=== PATIENT | male | born 1985 | race Caucasian/White ===

== ENCOUNTER 2017-07-01 19:04 | Emergency (ER) | payer OTHER ==
[~2017-07-01] VITALS: Ht 177.8 cm; Wt 147.4 kg
--- NOTE | 2017-07-01 19:32 | ED.ADGEN ---
Past History Past Medical History: Hypertension, Migraines, Sinusitis Past Surgical History: No Surgical History Alcohol Use: None Drug Use: None Adult General Chief Complaint Chief Complaint ".. I got a fever.. and now a head ache after mowing my yard..." HPI HPI Patient is a 31 year old male who presents with above hx and complaints of fever , headache, congestion all week off and on. Headache worse after mowing yard. Not eating or drinking in attempt to lose wt. Pt. has hx of migraine headaches. Pt. reports no urine out put this entire afternoon. Patient has been dizzy intermittently this afternoon. No recent travel. No specific ill contacts. No history of trauma. Patient reports headache is some similar to prior migraine headaches. Patient normally follows with Dr. Fishman. Review of Systems Review of Systems Constitutional: Denies fever or chills [] Eyes: Denies change in visual acuity, redness, or eye pain [] HENT: Complains of nasal congestion . Respiratory: Denies cough or shortness of breath [] Cardiovascular: No additional information not addressed in HPI [] GI: Denies abdominal pain, nausea, vomiting, bloody stools or diarrhea [] : Denies dysuria or hematuria [] Musculoskeletal: Denies back pain or joint pain [] Integument: Denies rash or skin lesions [] Neurologic: Complaints of headache. Denies, focal weakness or sensory changes [ ] Endocrine: Denies polyuria or polydipsia [] All other systems were reviewed and found to be within normal limits, except as documented in this note. Family History Family History Noncontributory Current Medications Current Medications Current Medications Medications (Trade) Dose Ordered Sig/Gini Start Time Stop Time Status Last Admin Dose Admin Ceftriaxone Sodium (Rocephin Im) 1 gm 1X ONCE 07/01/17 21:30 07/01/17 21:31 DC 07/01/17 21:06 1 GM Morphine Sulfate (Morphine 10mg Syringe) 10 mg 1X ONCE 07/01/17 21:30 07/01/17 21:31 DC 07/01/17 21:06 10 MG Ondansetron HCl (Zofran) 8 mg 1X ONCE 07/01/17 20:15 07/01/17 20:16 DC 07/01/17 20:12 8 MG See nursing for home medications Allergies Allergies Allergies Coded Allergies Type Severity Reaction Last Updated Verified sulfamethoxazole Allergy Severe 07/01/17 Yes trimethoprim Allergy Severe 07/01/17 Yes Physical Exam Physical Exam Constitutional: Moderate distress, non-toxic appearance. [] HENT: Normocephalic, atraumatic, bilateral external ears normal, oropharynx dry , no oral exudates, nose rhinorrhea. Swollen turbinates. Eyes: PERRLA, EOMI, conjunctiva normal, no discharge. [] Neck: Normal range of motion, no tenderness, supple, no stridor. [] Cardiovascular: Tachycardia Heart rate regular rhythm, no murmur [] Lungs & Thorax: Bilateral breath sounds equal at apexes on auscultation [] Abdomen: Bowel sounds normal, soft, no tenderness, no masses, no pulsatile masses. Obese Skin: Warm, dry, no erythema, no rash. [] Back: No tenderness, no CVA tenderness. [] Extremities: No tenderness, no cyanosis, no clubbing, ROM intact, no edema. [] Neurologic: Alert and oriented X 3, normal motor function, normal sensory function, no focal deficits noted. []DTRs +2 at patella and brachial. Patient is ambulatory without problems. Psychologic: Affect anxious, judgement normal, mood normal. [] Current Patient Data Vital Signs Vital Signs Date Time Temp Pulse Resp B/P (MAP) Pulse Ox O2 Delivery O2 Flow Rate FiO2 07/01/17 22:24 94 18 140/86 (104) 96 Room Air 07/01/17 19:19 98.4 Lab Results Laboratory Tests Test 07/01/17 19:25 07/01/17 20:39 07/01/17 21:00 White Blood Count 4.5 x10^3/uL (4.0-11.0) Red Blood Count 5.43 x10^6/uL (4.30-5.70) Hemoglobin 16.3 g/dL (13.0-17.5) Hematocrit 47.4 % (39.0-53.0) Mean Corpuscular Volume 87 fL (79-100) Mean Corpuscular Hemoglobin 30 pg (25-35) Mean Corpuscular Hemoglobin Concent 34 g/dL (31-37) Red Cell Distribution Width 13.8 % (11.5-14.5) Platelet Count 156 x10^3/uL (140-400) Neutrophils (%) (Auto) 62 % (31-73) Lymphocytes (%) (Auto) 17 % (24-48) L Monocytes (%) (Auto) 13 % (0-9) H Eosinophils (%) (Auto) 6 % (0-3) H Basophils (%) (Auto) 1 % (0-3) Neutrophils # (Auto) 2.8 x10^3uL (1.8-7.7) Lymphocytes # (Auto) 0.8 x10^3/uL (1.0-4.8) L Monocytes # (Auto) 0.6 x10^3/uL (0.0-1.1) Eosinophils # (Auto) 0.3 x10^3/uL (0.0-0.7) Basophils # (Auto) 0.0 x10^3/uL (0.0-0.2) Erythrocyte Sedimentation Rate 19 (0-15) H Prothrombin Time 10.6 SEC (9.4-11.4) Prothrombin Time INR 1.0 (0.9-1.1) PTT 28 SEC (23-33) Sodium Level 138 mmol/L (136-145) Potassium Level 3.9 mmol/L (3.5-5.1) Chloride Level 102 mmol/L (98-107) Carbon Dioxide Level 27 mmol/L (21-32) Anion Gap 9 (6-14) Blood Urea Nitrogen 10 mg/dL (8-26) Creatinine 1.1 mg/dL (0.7-1.3) Estimated GFR (Cockcroft-Gault) 77.1 Glucose Level 112 mg/dL (70-99) H Calcium Level 8.8 mg/dL (8.5-10.1) Magnesium Level 2.2 mg/dL (1.8-2.4) Creatine Kinase 68 U/L (39-308) Creatine Kinase MB (Mass) < 0.5 ng/mL (0.0-3.6) Creatine Kinase MB Relative Index 0.7 % (0-4) Troponin I Quantitative < 0.017 ng/mL (0-0.055) TP-Wcu-U-Type Natriuretic Peptide 79 pg/mL (0-124) Urine Collection Type Unknown Urine Color Yellow Urine Clarity Clear Urine pH 7.0 Urine Specific [place] 1.020 Urine Protein Trace (NEG-TRACE) Urine Glucose (UA) Neg mg/dL (NEG) Urine Ketones (Stick) Trace mg/dL (NEG) Urine Blood Trace (NEG) Urine Nitrite Neg (NEG) Urine Bilirubin Neg (NEG) Urine Urobilinogen Dipstick 1 mg/dL (0.2 mg/dL) Urine Leukocyte Esterase Neg (NEG) Urine RBC Rare /HPF (0-2) Urine WBC 1-4 /HPF (0-4) Urine Squamous Epithelial Cells Occ /LPF Urine Bacteria 0 /HPF (0-FEW) Urine Mucus Mod /LPF Urine Opiates Screen Neg (NEG) Urine Methadone Screen Neg (NEG) Urine Barbiturates Neg (NEG) Urine Phencyclidine Screen Neg (NEG) Urine Amphetamine/Methamphetamine Neg (NEG) Urine Benzodiazepines Screen Neg (NEG) Urine Cocaine Screen Neg (NEG) Urine Cannabinoids Screen Neg (NEG) Urine Ethyl Alcohol Neg (NEG) EKG EKG My interpretation of EKG shows a sinus tachycardia 105 bpm. No findings of acute STEMI with contralateral changes.[] Radiology/Procedures Radiology/Procedures My interpretation of chest x-ray shows no acute cardiopulmonary findings. My interpretation of CT of head shows no obvious shift, mass, edema, bleed, or fracture. Does have findings consistent with ethmoid sinusitis. Right ear area appears to be more congested. See formal report when available[] Course & Med Decision Making Course & Med Decision Making Pertinent Labs and Imaging studies reviewed. (See chart for details). Patient declines spinal tap this time. Patient exhibits UCAR capacity. Patient reports marked relief of symptoms at time of discharge. Patient to take Keflex 500 mg 3 times a day for 10 days. Patient used Flonase nasal spray at night. Patient use normal salines sprays at least 4 times a day and when necessary. Patient to follow-up with primary care. Patient may take Tylenol and ibuprofen for pain. Patient return if any concerns. Encouraged patient to push fluid intake especially when he is attempting to lose weight or working outside in the heat. [] Final Impression Final Impression 1. Fever 2. Headache[]-migraine 3. Sinusitis- ethmoid Problems: Dragon Disclaimer Dragon Disclaimer This electronic medical record was generated, in whole or in part, using a voice recognition dictation system. LISANDRO LOPEZ MD Jul 01, 2017 19:31
[2017-07-01 20:05] LABS: BASO % 1 % (0-3); EOS # 0.3 x10^3/uL (0.0-0.7); EOS % 6 % (0-3); HEMATOCRIT 47.4 % (39.0-53.0); HEMOGLOBIN 16.3 g/dL (13.0-17.5); LYMPH # 0.8 x10^3/uL (1.0-4.8); LYMPH % 17 % (24-48); MEAN CORPUSCULAR HEMOGLOBIN 30 pg (25-35); MEAN CORPUSCULAR HGB CONC 34 g/dL (31-37); MEAN CORPUSCULAR VOLUME 87 fL (79-100); MONO # 0.6 x10^3/uL (0.0-1.1); MONO % 13 % (0-9); NEUT # 2.8 x10^3uL (1.8-7.7); NEUT % 62 % (31-73); PLATELET COUNT 156 x10^3/uL (140-400); RED BLOOD COUNT 5.43 x10^6/uL (4.30-5.70); RED CELL DISTRIBUTION WIDTH 13.8 % (11.5-14.5); WHITE BLOOD COUNT 4.5 x10^3/uL (4.0-11.0)
--- NOTE | 2017-07-01 20:07 | EKG ---
[address] [address] Test Date: 2017-07-01 Test Time: 19:55:31 Pat Name: SEVEN PEDRAZA Department: Room: Gender: M Cnp: DOREEN : 1985 Requested By: LISANDRO LOPEZ Order Number: [id number] Reading MD: Measurements Intervals [place] Rate: 105 P: 38 NH: 136 QRS: 19 QRSD: 92 T: 17 QT: 314 QTc: 419 Interpretive Statements SINUS TACHYCARDIA OTHERWISE NORMAL ECG RI6.01 No previous ECG available for comparison
[2017-07-01] MEDS ORDERED: ONDANSETRON PF 4 MG/2 ML VIAL. IV ONE (20:15)
[2017-07-01 20:20] LABS: ANION GAP 9 (6-14); BLOOD UREA NITROGEN 10 mg/dL (8-26); CALCIUM 8.8 mg/dL (8.5-10.1); CARBON DIOXIDE 27 mmol/L (21-32); CHLORIDE 102 mmol/L (98-107); CREATININE 1.1 mg/dL (0.7-1.3); GFR 77.1; GLUCOSE 112 mg/dL (70-99); MAGNESIUM 2.2 mg/dL (1.8-2.4); POTASSIUM 3.9 mmol/L (3.5-5.1); SODIUM 138 mmol/L (136-145)
--- NOTE | 2017-07-01 20:45 | RAD ---
PQRS Compliance Statement: One or more of the following individualized dose reduction techniques were utilized for this examination: 1. Automated exposure control 2. Adjustment of the mA and/or kV according to patient size 3. Use of iterative reconstruction technique CT HEAD WITHOUT CONTRAST History: severe headache x 1 week, nausea Comparison: None. Procedure: Axial images are obtained of the head from the skull base through the vertex without IV contrast. Findings: The ventricles and sulci are normal for the patient's age. No mass-effect, midline shift, hemorrhage, extra-axial fluid collection, or obvious acute infarction is identified. Basilar cisterns are patent. Bone windows demonstrate no acute calvarial abnormality. Mucosal thickening bilateral ethmoid sinuses, worse on the right. The other visualized paranasal sinuses are clear. Mastoid air cells are well aerated. IMPRESSION: No acute intracranial abnormality. Electronically signed by: Darryl Bahena MD (07/01/2017 8:41 PM) [facility]
[2017-07-01] MEDS ORDERED: FLUT9.9S NS (21:04)
[2017-07-01] MEDS ORDERED: CEPH-264 PO (21:04)
[2017-07-01 21:06] LABS: SEDIMENTATION RATE 19 (0-15)
[2017-07-01] MEDS ORDERED: MORPHINE SULFATE 10 MG/ML SYRINGE. SQ ONE (21:30)
[2017-07-01] MEDS ORDERED: cefTRIAXone IM 1 GM VIAL IM ONE (21:30)
[2017-07-01 22:05] LABS: BACTERIA,URINE 0 /HPF (0-FEW); BILIRUBIN,URINE NEG (NEG); CLARITY,URINE CLEAR; GLUCOSE,URINE NEG (NEG); NITRITE,URINE NEG (NEG); RBC,URINE RARE /HPF (0-2); SQUAMOUS EPITHELIAL CELL,UR OCC /LPF; UROBILINOGEN,URINE 1 mg/dL (0.2 mg/dL)
[2017-07-01 22:06] LABS: COLOR,URINE YELLOW
[2017-07-01 22:24] VITALS: BP 140/86
[2017-07-01 22:28] LABS: BARBITURATES NEG (NEG); BENZODIAZEPINES NEG (NEG); CANNABINOIDS NEG (NEG); COCAINE NEG (NEG); METHADONE NEG (NEG); OPIATES NEG (NEG); PHENCYCLIDINE NEG (NEG)
[2017-07-01 22:29] LABS: AMPHETAMINE/METHAMPHETAMINE NEG (NEG)
--- NOTE | 2017-07-02 07:48 | RAD ---
2 views of the Chest 07/01/2017 9:44 PM Indication: nausea, pain Comparison: None Findings: There is no focal consolidation or infiltrate identified. There is no effusion or pneumothorax. The cardiomediastinal silhouette and pulmonary vasculature are within normal limits. No osseous abnormality is identified. Impression: No evidence of acute cardiopulmonary process.
--- NOTE | 2017-07-02 08:14 | RAD ---
Abdomen, 2 views, 07/01/2017: History: Chest and abdominal pain The abdominal gas pattern is unremarkable. No free air is seen in the abdomen. There is no evidence of organomegaly. A faint pelvic radiopacity all and the left is probably a phlebolith. IMPRESSION: No acute abdominal abnormality is detected.
== END 2017-07-01 22:25 | disposition home or self-care (01) ==
LOC: ER 19:04
DX: J32.2 Chronic ethmoidal sinusitis (principal); G43.909 Migraine, unspecified, not intractable, without status migrainosus; I10 Essential (primary) hypertension; Z88.2 Allergy status to sulfonamides; Z88.1 Allergy status to other antibiotic agents
CPT/HCPCS: 36415; 70450; 71046; 74022; 80048; 80307; 81001; 82553; 83735; 83880; 84484; 85025; 85610; 85651; 85730; 93005; 96372; 96374; 99285; J0696; J2270; J2405; G0479

== ENCOUNTER 2019-12-06 12:37 | Emergency (ER) | payer MEDICAID, OTHER ==
[~2019-12-06] VITALS: Ht 185.4 cm; Wt 186.4 kg
[~2019-12-06 12:37] MED LIST: CEPH-264 PO; FLUT9.9S NS
[2019-12-06] MEDS ORDERED: ASPIRIN CHEWABLE 81 MG TABLET. PO ONE (12:45)
--- NOTE | 2019-12-06 12:54 | EKG ---
[address] [address] Test Date: 2019-12-06 Test Time: 12:41:41 Pat Name: SEVEN PEDRAZA Department: Room: Gender: M Vp Organizational Development: : 1985 Requested By: SANTO BERNARDO Order Number: [id number] Reading MD: Roberto Major MD Measurements Intervals [place] Rate: 86 P: 39 CT: 152 QRS: 17 QRSD: 90 T: 26 QT: 348 QTc: 419 Interpretive Statements SINUS RHYTHM Electronically Signed On 12-08-2019 13:02:08 CDT by Roberto Major MD
[2019-12-06 13:00] LABS: BASO # 0.1 x10^3/uL (0.0-0.2); BASO % 1 % (0-3); EOS # 0.2 x10^3/uL (0.0-0.7); EOS % 4 % (0-3); HEMATOCRIT 48.7 % (39.0-53.0); LYMPH # 1.4 x10^3/uL (1.0-4.8); LYMPH % 21 % (24-48); MEAN CORPUSCULAR HEMOGLOBIN 30 pg (25-35); MEAN CORPUSCULAR HGB CONC 33 g/dL (31-37); MEAN CORPUSCULAR VOLUME 91 fL (79-100); MONO # 0.7 x10^3/uL (0.0-1.1); MONO % 11 % (0-9); NEUT # 4.1 x10^3uL (1.8-7.7); NEUT % 63 % (31-73); PLATELET COUNT 230 x10^3/uL (140-400); RED BLOOD COUNT 5.37 x10^6/uL (4.30-5.70); RED CELL DISTRIBUTION WIDTH 14.1 % (11.5-14.5); WHITE BLOOD COUNT 6.6 x10^3/uL (4.0-11.0)
[2019-12-06 13:07] LABS: CALCIUM 9.3 mg/dL (8.5-10.1); CREATININE 1.1 mg/dL (0.7-1.3); GFR 75.7; POTASSIUM 4.1 mmol/L (3.5-5.1)
[2019-12-06 13:40] VITALS: BP 137/67
--- NOTE | 2019-12-06 13:44 | PHYS DOC ---
Past History Past Medical History: Anxiety, GERD, Hypertension, Migraines, Pneumonia, Sinusitis Past Surgical History: No Surgical History Alcohol Use: None Drug Use: None Adult General Chief Complaint Chief Complaint: CHEST PAIN HPI HPI Patient is a 34-year-old male with a history of hypothyroidism who presents to the emergency room complaining of intermittent palpitations. This is been ongoing for the last couple of months and just started happening significantly this morning. It is now mostly resolved. He has seen his primary care doctor for it but they believe that it is related to his reflux. He has been started on medications for his reflux however this has not helped. He recently had an increase in his medication. Review of Systems Review of Systems General: Denies fever, chills, sweats, fatigue Eyes: Denies drainage, blurred vision, eye redness HENT: Denies rhinorrhea, sore throat, earache Respiratory: Denies cough, shortness of breath, wheezing Cardiac: Denies edema, reports palpitations GI: Denies abdominal pain, Nausea, vomiting MSK: Denies back pain, neck pain Skin: Denies rash, jaundice Neuro: Denies headache, dizziness Psychiatric: Denies SI/HI Current Medications Current Medications Current Medications Medications (Trade) Dose Ordered Sig/Gini Start Time Stop Time Status Last Admin Dose Admin Aspirin (Aspirin Chewable) 324 mg 1X ONCE 12/06/19 12:45 12/06/19 12:52 DC 12/06/19 12:52 324 MG Allergies Allergies Allergies Coded Allergies Type Severity Reaction Last Updated Verified sulfamethoxazole Allergy Severe 07/01/17 Yes trimethoprim Allergy Severe 07/01/17 Yes Physical Exam Physical Exam General: Awake, alert, NAD. Well Nourished, well hydrated. Cooperative HEENT: Atraumatic, EOMI, PERRL, airway patent, moist oral mucosa Neck: Supple, trachea midline Respiratory: CTA bilaterally, normal effort, no wheezing/crackles CV: RRR, no murmur, cap refill <2 GI: Soft, nondistended, nontender, no masses MSK: No obvious deformities Skin: Warm, dry, intact Neuro: A&O x3, speech NL, sensory and motor grossly intact, no focal deficits Psych: Normal affect, normal mood, not suicidal or homicidal Current Patient Data Vital Signs Vital Signs Date Time Temp Pulse Resp B/P (MAP) Pulse Ox O2 Delivery O2 Flow Rate FiO2 12/06/19 12:37 97.7 91 26 138/83 (101) 97 Room Air Lab Results Laboratory Tests Test 12/06/19 12:40 White Blood Count 6.6 x10^3/uL (4.0-11.0) Red Blood Count 5.37 x10^6/uL (4.30-5.70) Hemoglobin 16.0 g/dL (13.0-17.5) Hematocrit 48.7 % (39.0-53.0) Mean Corpuscular Volume 91 fL (79-100) Mean Corpuscular Hemoglobin 30 pg (25-35) Mean Corpuscular Hemoglobin Concent 33 g/dL (31-37) Red Cell Distribution Width 14.1 % (11.5-14.5) Platelet Count 230 x10^3/uL (140-400) Neutrophils (%) (Auto) 63 % (31-73) Lymphocytes (%) (Auto) 21 % (24-48) L Monocytes (%) (Auto) 11 % (0-9) H Eosinophils (%) (Auto) 4 % (0-3) H Basophils (%) (Auto) 1 % (0-3) Neutrophils # (Auto) 4.1 x10^3uL (1.8-7.7) Lymphocytes # (Auto) 1.4 x10^3/uL (1.0-4.8) Monocytes # (Auto) 0.7 x10^3/uL (0.0-1.1) Eosinophils # (Auto) 0.2 x10^3/uL (0.0-0.7) Basophils # (Auto) 0.1 x10^3/uL (0.0-0.2) Sodium Level 138 mmol/L (136-145) Potassium Level 4.1 mmol/L (3.5-5.1) Chloride Level 101 mmol/L (98-107) Carbon Dioxide Level 25 mmol/L (21-32) Anion Gap 12 (6-14) Blood Urea Nitrogen 11 mg/dL (8-26) Creatinine 1.1 mg/dL (0.7-1.3) Estimated GFR (Cockcroft-Gault) 75.7 Glucose Level 84 mg/dL (70-99) Calcium Level 9.3 mg/dL (8.5-10.1) Troponin I Quantitative < 0.017 ng/mL (0-0.055) PB-Grv-N-Type Natriuretic Peptide 26 pg/mL (0-124) EKG EKG [] Radiology/Procedures Radiology/Procedures [] Course & Med Decision Making Course & Med Decision Making Pertinent Labs and Imaging studies reviewed. (See chart for details) patient is a 34-year-old male presents to the emergency room complaining of intermittent palpitations. While in the emergency room he did have a couple of episodes and is having some PVCs. Electrolytes are normal at this time. I will refer him to cardiology for Holter monitor. He is not have any true chest pain. Patient's test results and vitals while in the ED were fully reviewed and discussed with the patient. Patient is stable and at this time does not need admission to the hospital. We have discussed strict return precautions and the importance of following up with their Primary Care Physician. Patient stated understanding and was given an opportunity to ask any questions. Patient is in agreement with plan. Dragon Disclaimer Dragon Disclaimer This electronic medical record was generated, in whole or in part, using a voice recognition dictation system. Departure Departure: Disposition: 01 HOME/RESIDENCE PRIOR TO ADM Condition: STABLE Referrals: LIZ METZ MD (PCP) SANTO BERNARDO MD Dec 06, 2019 13:44
--- NOTE | 2019-12-06 13:49 | RAD ---
Exam performed: 2 views of the chest. Indication: Reason: chest pain / Spl. Instructions: / History: Date of Service: 12/06/2019 12:43 PM . Comparison : 2 views chest from 07/01/2017 Findings: PA and lateral radiographs of the chest reveal a normal cardiomediastinal contour. The lungs are clear. No pleural fluid is seen. The visualized osseous structures are unremarkable. Impression: No acute cardiopulmonary process seen. Electronically signed by: Miguelina Qureshi MD (12/06/2019 1:46 PM) [facility]
== END 2019-12-06 14:40 | disposition home or self-care (01) ==
LOC: ER 12:37
DX: R00.2 Palpitations (principal); K21.9 Gastro-esophageal reflux disease without esophagitis; I10 Essential (primary) hypertension; G43.909 Migraine, unspecified, not intractable, without status migrainosus; F41.9 Anxiety disorder, unspecified; E03.9 Hypothyroidism, unspecified; Z88.1 Allergy status to other antibiotic agents; Z88.2 Allergy status to sulfonamides
CPT/HCPCS: 36415; 71046; 80048; 83880; 84484; 85025; 93005; 99285

== ENCOUNTER → 2020-06-02 | Outpatient (CLI) | payer MEDICAID ==
[~2020-06-02] MED LIST changes: +ALBU2.5V8 INH; +ALPR0.5T PO; +ASPI-630 PO; +LEVO200T5 PO; +METO-239 PO; +OMEP40CA45 PO
[2020-06-02] MEDS: IOHEXOL 300 MG/ML 75 ML VIAL. IV ONE (15:11)
--- NOTE | 2020-06-02 16:34 | RAD ---
CT chest abdomen with contrast dated 06/02/2020. No comparison available. CLINICAL INDICATION: Nausea diarrhea and constipation. TECHNIQUE: Contiguous axial imaging of the chest abdomen performed following the intravenous administration of 7 4 cc Isovue-370. One or more of the following individualized dose reduction techniques were utilized for this examinat ion: 1. Automated exposure control 2. Adjustment of the mA and/or kV according to patient size 3. Use of iterative reconstruction technique FINDINGS: Heart size is within normal limits. No pericardial effusion. No mediastinal, hilar or axillary lympha denopathy. Thyroid gland unremarkable. Central airways are patent. Lungs are clear. No consolidation or pleural effusion. No pneumothorax. Central airways are patent. Lungs are clear. No consolidation or pleural effusion. No pneumothorax. Liver is homogeneous. No apparent mass. Gallbladder surgically absent. Spleen is normal in size. Panc reas, adrenal glands and kidneys are unremarkable. No hydronephrosis. Unopacified GI tract normal in caliber and contour. No focal bowel wall thickening. No inflammatory s tranding in the mesentery. No ascites or lymphadenopathy. Appendix normal in caliber. Bone windows show no acute finding. IMPRESSION: 1. No acute abnormality of chest abdomen. 2. Mild fatty infiltration of the liver. 3. Status post cholecystectomy. Electronically signed by: Virgil Juarez MD (06/02/2020 4:31 PM) [facility]
== END ==
LOC: CT 15:00
PROVIDERS: ATTEND Family Medicine
DX: K59.00 Constipation, unspecified (principal); K76.0 Fatty (change of) liver, not elsewhere classified; R10.84 Generalized abdominal pain; R19.7 Diarrhea, unspecified; R63.4 Abnormal weight loss; Z90.49 Acquired absence of other specified parts of digestive tract
CPT/HCPCS: 71260; 74160; Q9967

== ENCOUNTER → 2020-06-18 | Outpatient (CLI) | payer MEDICAID ==
--- NOTE | 2020-06-18 16:59 | RAD ---
EXAM: Chest, 2 views. HISTORY: Shortness of breath. Wheezing. COMPARISON: CT dated 06/02/2020. FINDINGS: 2 views of the chest are obtained. There is no infiltrate, pleural effusion or pneumothorax . The heart is normal in size. IMPRESSION: No acute pulmonary finding. Electronically signed by: Gregoria Beach MD (06/18/2020 4:56 PM) [facility]
== END ==
LOC: RAD 16:37
DX: R06.02 Shortness of breath (principal); R06.2 Wheezing; Z87.01 Personal history of pneumonia (recurrent)
CPT/HCPCS: 71046

== ENCOUNTER 2020-07-12 15:59 | Emergency (ER) | payer MEDICAID ==
[~2020-07-12] VITALS: Ht 185.4 cm; Wt 150.0 kg
--- NOTE | 2020-07-12 17:00 | EKG ---
[address] [address] Test Date: 2020-07-12 Test Time: 16:04:48 Pat Name: SEVEN PEDRAZA Department: Room: Gender: M Emergency Manager: : 1985 Requested By: ROBERT JETT Order Number: [id number] Reading MD: Measurements Intervals [place] Rate: 84 P: 36 MA: 144 QRS: 6 QRSD: 92 T: 25 QT: 346 QTc: 412 Interpretive Statements SINUS RHYTHM NORMAL ECG RI6.02 No previous ECG available for comparison
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
[2020-07-12] MEDS ORDERED: IOHEXOL 350 MG/ML 100 ML VIAL. IV ONE (17:45)
[2020-07-12] MEDS ORDERED: IOHEXOL 300 MG/ML 75 ML VIAL. IV ONE (17:45)
--- NOTE | 2020-07-12 17:57 | RAD ---
EXAM: Chest, single view. HISTORY: Chest pain. COMPARISON: None. FINDINGS: A frontal view of the chest obtained. There is no infiltrate, pleural effusion or pneumotho rax. The heart is normal in size. IMPRESSION: No acute pulmonary finding. Electronically signed by: Gregoria Beach MD (07/12/2020 5:54 PM) [facility]
[2020-07-12 18:05] LABS: BASO % 0 % (0-3); EOS # 0.2 x10^3/uL (0.0-0.7); EOS % 4 % (0-3); HEMATOCRIT 51.3 % (39.0-53.0); HEMOGLOBIN 17.5 g/dL (13.0-17.5); LYMPH # 1.1 x10^3/uL (1.0-4.8); LYMPH % 17 % (24-48); MEAN CORPUSCULAR HEMOGLOBIN 31 pg (25-35); MEAN CORPUSCULAR HGB CONC 34 g/dL (31-37); MEAN CORPUSCULAR VOLUME 91 fL (79-100); MONO # 0.6 x10^3/uL (0.0-1.1); MONO % 10 % (0-9); NEUT # 4.6 x10^3uL (1.8-7.7); NEUT % 70 % (31-73); PLATELET COUNT 227 x10^3/uL (140-400); RED BLOOD COUNT 5.63 x10^6/uL (4.30-5.70); RED CELL DISTRIBUTION WIDTH 13.8 % (11.5-14.5); WHITE BLOOD COUNT 6.7 x10^3/uL (4.0-11.0)
[2020-07-12 18:16] LABS: CALCIUM 9.4 mg/dL (8.5-10.1); CREATININE 1.1 mg/dL (0.7-1.3); GFR 75.7; POTASSIUM 4.5 mmol/L (3.5-5.1)
[2020-07-12 18:30] LABS: ALBUMIN 4.3 g/dL (3.4-5.0); ALBUMIN/GLOBULIN RATIO 1.1 (1.0-1.7); TOTAL BILIRUBIN 0.4 mg/dL (0.2-1.0); TOTAL PROTEIN 8.3 g/dL (6.4-8.2)
--- NOTE | 2020-07-12 19:03 | RAD ---
Exam: CTA NECK Date: 07/12/2020 6:10 PM Indication: neck and chest pain s/p heart cath x 1 week ago Comparison: None Technique: CT angiogram of neck was obtained with bolus injection of 100 mL of Omnipaque 350. The images were s ent to workstation and multiplanar reconstructions were obtained. Multiplanar reconstruction images to include MIP and 3-D reconstruction images are submitted. One or more of the following dose reduct ion techniques were utilized: Automated exposure control (AEC), Adjustment of mA and/or kV according to patient size, Use of iterative reconstruction technique such as ASiR, CT scan done according to AL AFL and image gently/image wisely Findings: Right carotid: The right common carotid artery is patent and normal caliber. The carotid bifurcation is normal. No stenosis of the right internal carotid artery per NASCET criteria. The right external c arotid artery is patent. Left carotid: The left common carotid artery is patent and normal caliber. The carotid bifurcation is normal. No stenosis of the left internal carotid artery per NASCET criteria. The left external carot id artery is patent. Right vertebral: The right vertebral artery is patent and diffusely hypoplastic. Left vertebral: The left vertebral artery is patent and normal caliber. The visualized portions of the aortic arch are normal. The origins of the brachiocephalic and subclav elba arteries are normal. No cervical lymphadenopathy. The thyroid gland is normal. The parotid and submandibular glands are no rmal. The visualized aerodigestive tract is unremarkable. The cervical spine is normal. The visualized portions of the lungs are clear. Impression: No stenosis or dissection of the cervical carotid or vertebral arteries. PQRS Compliance Statement - Stenosis calculations for CT, MR and conventional angiography are based u mireya measurement of the distal ICA diameter in accordance with the NASCET methodology. Electronically signed by: Keo Theodore MD (07/12/2020 7:01 PM) [facility]
[2020-07-12 19:24] VITALS: BP 149/93
[2020-07-12] MEDS ORDERED: oxyCODONE/APAP 7.5/325 1 TAB TABLET PO ONE (19:30)
== END 2020-07-12 20:37 | disposition home or self-care (01) ==
LOC: ER 15:59
DX: R07.89 Other chest pain (principal); M54.2 Cervicalgia; K21.9 Gastro-esophageal reflux disease without esophagitis; Z90.49 Acquired absence of other specified parts of digestive tract; Z88.2 Allergy status to sulfonamides
CPT/HCPCS: 36415; 70498; 71045; 80053; 83880; 84484; 85025; 93005; 99285; Q9967

== ENCOUNTER → 2020-08-19 | Outpatient (CLI) | payer OTHER ==
[~2020-08-19] MED LIST changes: -OMEP40CA45 PO; +OMEP40CA7 PO
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
== END ==
LOC: RAD 13:47
PROVIDERS: ATTEND Nurse Practitioner Family
DX: M25.572 Pain in left ankle and joints of left foot (principal); M79.89 Other specified soft tissue disorders
CPT/HCPCS: 73610

== ENCOUNTER → 2020-08-23 | Outpatient (CLI) | payer MEDICAID ==
--- NOTE | 2020-08-23 16:18 | RAD ---
EXAM: Thyroid sonogram. HISTORY: Hypothyroidism. Neck pain. TECHNIQUE: Sonographic imaging of the thyroid was performed. COMPARISON: CT dated 07/12/2020. FINDINGS: The exam is limited due to the depth of the thyroid gland and patient motion. Right the rig ht thyroid lobe measures 3.3 x 1.4 x 1.1 cm. The left thyroid lobe measures 3.4 x 1.8 x 1.1 cm. The t hyroid isthmus measures 5.1 mm. The thyroid parenchyma is diffusely heterogeneous. No discrete nodule is seen. There is a prominent left cervical chain lymph node measuring 2.8 cm in long axis at the si te of reported palpable concern. This maintains a fatty hilum. However, this demonstrates mild cortic al thickening. IMPRESSION: 1. Limited exam due to the depth of the thyroid gland and patient motion. The thyroid parenchyma is d iffusely heterogeneous, without a discrete nodule. This can be seen as a sequela of thyroiditis. 2. Prominent left cervical chain lymph node with thickened cortex at the site of palpable concern. Th is is nonspecific and may be physiologic or reactive in etiology. Continued clinical follow-up of pal pable abnormalities is recommended. Electronically signed by: Gregoria Beach MD (08/23/2020 4:15 PM) [id number]
== END ==
LOC: US 14:57
PROVIDERS: ATTEND Physician Assistant
DX: E06.9 Thyroiditis, unspecified (principal); M54.2 Cervicalgia; E03.9 Hypothyroidism, unspecified
CPT/HCPCS: 76536

== ENCOUNTER → 2020-10-09 | Outpatient (CLI) | payer MEDICAID ==
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
== END ==
LOC: RAD 12:31
PROVIDERS: ATTEND Nurse Practitioner Family
DX: M43.8X2 Other specified deforming dorsopathies, cervical region (principal); M54.5 Low back pain; M54.6 Pain in thoracic spine; M53.3 Sacrococcygeal disorders, not elsewhere classified; Z91.81 History of falling
CPT/HCPCS: 72072; 72100; 72220

== ENCOUNTER 2020-11-16 21:42 | Emergency (ER) | payer MEDICAID ==
[~2020-11-16] VITALS: Ht 185.4 cm; Wt 159.0 kg
--- NOTE | 2020-11-16 22:30 | PHYS DOC ---
Past History Past Medical History: GERD, Hyperthyroid Past Surgical History: Cholecystectomy, Other Additional Past Surgical Histo: CARDIAC CATH Alcohol Use: None Drug Use: None General Adult EDM: Chief Complaint: CHEST PAIN HPI: HPI: 35-year-old male presents with chest pain. The patient has been having inte rmittent chest pain for about a year. He used to have very frequent PVCs that cause dizziness and near syncope. He had his disease gallbladder removed and these events stopped happening. He has been having events like this more recently. He presents tonight because his primary care physician is unable to get a CT ordered for the patient until March. Patient had a cardiac cath in April that was completely clean. Patient has been feeling a mass in his left breast and there is strong family history of male breast cancer. Patient denies fever or chills. Review of Systems: Review of Systems: Constitutional: Denies fever or chills Eyes: Denies change in visual acuity HENT: Denies nasal congestion or sore throat Respiratory: Denies cough or shortness of breath Cardiovascular: Chest pain GI: Denies abdominal pain, nausea, vomiting, bloody stools or diarrhea : Denies dysuria Musculoskeletal: Denies back pain or joint pain Integument: Breast mass left breast Neurologic: Denies headache, focal weakness or sensory changes Endocrine: Denies polyuria or polydipsia Lymphatic: Denies swollen glands Psychiatric: Denies depression or anxiety Allergies: Allergies: Allergies Coded Allergies Type Severity Reaction Last Updated Verified sulfamethoxazole Allergy Severe 07/01/17 Yes trimethoprim Allergy Severe 07/01/17 Yes Physical Exam: PE: Constitutional: Well developed, well nourished, morbidly obese, no acute distress, non-toxic appearance. [] HENT: Normocephalic, atraumatic, bilateral external ears normal, oropharynx moist, no oral exudates, nose normal. [] Eyes: PERRLA, EOMI, conjunctiva normal, no discharge. [] Neck: Normal range of motion, no tenderness, supple, no stridor. [] Cardiovascular: Heart rate regular rhythm, no murmur [] Lungs & Thorax: Bilateral breath sounds clear to auscultation [] Abdomen: Bowel sounds normal, soft, no tenderness, no masses, no pulsatile masses. [] Skin: Subcentimeter palpable mass at the 8 o'clock position of the left breast. [] Back: No tenderness, no CVA tenderness. [] Extremities: No tenderness, no cyanosis, no clubbing, ROM intact, no edema. [] Neurologic: Alert and oriented X 3, normal motor function, normal sensory function, no focal deficits noted. [] Psychologic: Affect normal, judgement normal, mood normal. [] Current Patient Data: Vital Signs: Vital Signs Date Time Temp Pulse Resp B/P (MAP) Pulse Ox O2 Delivery O2 Flow Rate FiO2 11/16/20 21:50 98.4 101 18 164/84 (110) 98 Room Air EKG: EKG: Sinus rhythm, rate 91, leftward axis, no ST elevation or depression. [] Radiology/Procedures: Radiology/Procedures: [] Impressions: Examination: CT chest abdomen pelvis with IV contrast HISTORY: History of chest pain, epigastric pain COMPARISON: None available TECHNIQUE: Axial CT images of the chest abdomen pelvis were performed with IV contrast. Coronal and sagittal reformats are performed Exposure: One or more of the following individualized dose reduction techniques were utilized for this examination: 1. Automated exposure control 2. Adjustment of the mA and/or kV according to patient size 3. Use of iterative reconstruction technique. FINDINGS: The visualized thyroid gland grossly appears unremarkable. Central airways are patent. The caliber of the aorta grossly appears unremarkable. No radiologically significant mediastinal lymphadenopathy. The heart size grossly appears unremarkable. The lungs are clear. No evidence of free air identified in the abdomen. Mild degree attenuation noted in the liver likely steatosis. The spleen, adrenals grossly appears unremarkable. Cholecystectomy changes. The stomach is mildly distended. Minimal distended small bowel loops. The visualized pancreas grossly appears unremarkable. The small bowel is nondilated. Feces and gas noted in the colon. The appendix is normal. Urinary bladder is mildly distended No evidence of hydronephrosis. No evidence of lytic or destructive lesion. IMPRESSION: 1. Minimally distended small bowel loops, nonspecific or mild enteritis. 2. Mild hepatic steatosis. 3. Cholecystectomy changes. Electronically signed by: Fernando Fontaine MD (11/16/2020 11:55 PM) [id number] DICTATED AND SIGNED BY: FERNANDO FONTAINE MD DATE: 11/16/20 2348 CC: RUMA AYALA DO; JOHNNY POLO MD ~MTH0 0 Heart Score: C/O Chest Pain: Yes HEART Score for Chest Pain: HEART Score for Chest Pain Response (Comments) Value History Slighlty/Non-Suspicious 0 ECG Normal 0 Age < 45 0 Risk Factors 1 or 2 Risk Factors 1 Troponin < Normal Limit 0 Total 1 Risk Factors: Risk Factors: DM, Current or recent (<one month) smoker, HTN, HLP, family history of CAD, obesity. Risk Scores: Score 0 - 3: 2.5% MACE over next 6 weeks - Discharge Home Score 4 - 6: 20.3% MACE over next 6 weeks - Admit for Clinical Observation Score 7 - 10: 72.7% MACE over next 6 weeks - Early Invasive Strategies Course & Med Decision Making: Course & Med Decision Making Pertinent Labs and Imaging studies reviewed. (See chart for details) Patient's EKG is unremarkable. His chest x-ray shows bilateral minimal atelectasis or infiltrates. His other lab work and symptoms do not support infiltrates. His labs are unremarkable. His CT scan showed some nonspecific mild dilated loops of small bowel. No obvious chest wall mass on scan. See official read for details. I have encouraged the patient to have a mammogram and/or ultrasound given the breast cancer history in the family. He will continue to follow-up with his doctors as previously planned. He is stable for discharge at this time. [] Dragon Disclaimer: Dragon Disclaimer: This electronic medical record was generated, in whole or in part, using a voice recognition dictation system. Departure Departure: Impression: Primary Impression: Chest wall pain Additional Impression: Palpitations Disposition: HOME / SELF CARE / HOMELESS Condition: STABLE Referrals: JOHNNY POLO MD (PCP) Patient Instructions: Palpitations, [id number] RUMA AYALA DO Nov 16, 2020 22:30
[2020-11-16 22:51] LABS: BASO % 1 % (0-3); EOS # 0.2 x10^3/uL (0.0-0.7); EOS % 3 % (0-3); HEMATOCRIT 51.7 % (39.0-53.0); HEMOGLOBIN 17.4 g/dL (13.0-17.5); LYMPH # 1.4 x10^3/uL (1.0-4.8); LYMPH % 26 % (24-48); MEAN CORPUSCULAR HEMOGLOBIN 31 pg (25-35); MEAN CORPUSCULAR HGB CONC 34 g/dL (31-37); MEAN CORPUSCULAR VOLUME 91 fL (79-100); MONO # 0.7 x10^3/uL (0.0-1.1); MONO % 12 % (0-9); NEUT # 3.3 x10^3uL (1.8-7.7); NEUT % 59 % (31-73); PLATELET COUNT 215 x10^3/uL (140-400); RED BLOOD COUNT 5.67 x10^6/uL (4.30-5.70); WHITE BLOOD COUNT 5.6 x10^3/uL (4.0-11.0)
[2020-11-16 22:52] LABS: CALCIUM 8.7 mg/dL (8.5-10.1); CREATININE 1.1 mg/dL (0.7-1.3); GFR 75.3; POTASSIUM 4.1 mmol/L (3.5-5.1)
[2020-11-16 22:58] LABS: ALBUMIN 4.1 g/dL (3.4-5.0); ALBUMIN/GLOBULIN RATIO 1.1 (1.0-1.7); TOTAL BILIRUBIN 0.5 mg/dL (0.2-1.0); TOTAL PROTEIN 7.7 g/dL (6.4-8.2)
[2020-11-16] MEDS ORDERED: IOHEXOL 300 MG/ML 75 ML VIAL. IV ONE (23:30)
[2020-11-16] MEDS ORDERED: CONTRAST GIVEN. MC PRN (23:30)
--- NOTE | 2020-11-16 23:39 | RAD ---
EXAM: CHEST 1 VIEW History: Chest pain COMPARISON: None available. TECHNIQUE: Single portable radiograph of the chest FINDINGS: The cardiac silhouette is unremarkable. Mild bibasilar lung atelectasis or infiltrates.. T he costophrenic sulci are clear and well demarcated. IMPRESSION: Mild bibasilar lung atelectasis or infiltrates. Electronically signed by: Fernando Fontaine MD (11/16/2020 11:37 PM) [id number]
--- NOTE | 2020-11-16 23:58 | RAD ---
Examination: CT chest abdomen pelvis with IV contrast HISTORY: History of chest pain, epigastric pain COMPARISON: None available TECHNIQUE: Axial CT images of the chest abdomen pelvis were performed with IV contrast. Coronal and s agittal reformats are performed Exposure: One or more of the following individualized dose reduction techniques were utilized for thi s examination: 1. Automated exposure control 2. Adjustment of the mA and/or kV according to patient size 3. Use of iterative reconstruction technique. FINDINGS: The visualized thyroid gland grossly appears unremarkable. Central airways are patent. The caliber of the aorta grossly appears unremarkable. No radiologically significant mediastinal lymphadenopathy. T he heart size grossly appears unremarkable. The lungs are clear. No evidence of free air identified i n the abdomen. Mild degree attenuation noted in the liver likely steatosis. The spleen, adrenals chong sly appears unremarkable. Cholecystectomy changes. The stomach is mildly distended. Minimal distended small bowel loops. The visualized pancreas grossly appears unremarkable. The small bowel is nondilated. Feces and gas noted in the colon. The appendix is normal. Urinary bladder is mildly distended No evidence of hydronephrosis. No evidence of lytic or destructive lesion. IMPRESSION: 1. Minimally distended small bowel loops, nonspecific or mild enteritis. 2. Mild hepatic steatosis. 3. Cholecystectomy changes. Electronically signed by: Fernando Fontaine MD (11/16/2020 11:55 PM) [id number]
[2020-11-17 00:16] VITALS: BP 133/78
--- NOTE | 2020-11-17 07:22 | EKG ---
[address] [address] Test Date: 2020-11-16 Test Time: 22:15:51 Pat Name: SEVEN PEDRAZA Department: Room: Gender: M Tube Operator: ALAN : 1985 Requested By: RUMA AYALA Order Number: [id number] Reading MD: Measurements Intervals [place] Rate: 91 P: 39 NV: 154 QRS: -6 QRSD: 94 T: 26 QT: 340 QTc: 420 Interpretive Statements SINUS RHYTHM LEFTWARD AXIS NO SPECIFIC ECG ABNORMALITIES RI6.02 No previous ECG available for comparison
== END 2020-11-17 00:26 | disposition home or self-care (01) ==
LOC: ER 21:42
DX: R07.89 Other chest pain (principal); R00.2 Palpitations; R42 Dizziness and giddiness; R55 Syncope and collapse; N63.0 Unspecified lump in unspecified breast; K21.9 Gastro-esophageal reflux disease without esophagitis; E03.9 Hypothyroidism, unspecified; Z88.2 Allergy status to sulfonamides; Z88.1 Allergy status to other antibiotic agents
CPT/HCPCS: 36415; 71045; 71260; 74177; 80053; 84484; 85025; 93005; 99285; Q9967

== ENCOUNTER 2020-12-25 19:20 | Emergency (ER) | payer MEDICAID ==
[~2020-12-25] VITALS: Ht 182.9 cm; Wt 157.3 kg
[2020-12-25 19:26] VITALS: BP 164/89
[2020-12-25] MEDS ORDERED: ASPIRIN CHEWABLE 81 MG TABLET. PO ONE (20:00)
[2020-12-25 20:30] LABS: BASO % 1 % (0-3); EOS # 0.2 x10^3/uL (0.0-0.7); EOS % 3 % (0-3); HEMATOCRIT 52.7 % (39.0-53.0); HEMOGLOBIN 17.6 g/dL (13.0-17.5); LYMPH # 1.3 x10^3/uL (1.0-4.8); LYMPH % 21 % (24-48); MEAN CORPUSCULAR HEMOGLOBIN 31 pg (25-35); MEAN CORPUSCULAR HGB CONC 33 g/dL (31-37); MEAN CORPUSCULAR VOLUME 92 fL (79-100); MONO # 0.6 x10^3/uL (0.0-1.1); MONO % 9 % (0-9); NEUT # 4.3 x10^3uL (1.8-7.7); NEUT % 67 % (31-73); PLATELET COUNT 224 x10^3/uL (140-400); RED BLOOD COUNT 5.76 x10^6/uL (4.30-5.70); RED CELL DISTRIBUTION WIDTH 13.9 % (11.5-14.5); WHITE BLOOD COUNT 6.4 x10^3/uL (4.0-11.0)
--- NOTE | 2020-12-25 20:42 | RAD ---
EXAM: AP View of the chest DATE: 12/25/2020 7:44 PM INDICATION: Chest pain COMPARISON: 11/16/2020 07/12/2020 FINDINGS: The heart is not enlarged. Mediastinal and hilar contours are normal. No focal parenchymal airspace opacity. No pleural effusion or pneumothorax. IMPRESSION: 1. No radiographic evidence for acute cardiopulmonary process. Electronically signed by: Logan Romo MD (12/25/2020 8:40 PM) SC[facility]
[2020-12-25 20:55] LABS: ANION GAP 7 (6-14); BLOOD UREA NITROGEN 13 mg/dL (8-26); BUN/CREATININE RATIO 12 (6-20); CALCIUM 9.1 mg/dL (8.5-10.1); CARBON DIOXIDE 28 mmol/L (21-32); CHLORIDE 104 mmol/L (98-107); CREATININE 1.1 mg/dL (0.7-1.3); GFR 75.3; GLUCOSE 89 mg/dL (70-99); POTASSIUM 4.1 mmol/L (3.5-5.1); SODIUM 139 mmol/L (136-145)
[2020-12-25 21:21] LABS: ALBUMIN 4.1 g/dL (3.4-5.0); ALK PHOS 89 U/L (46-116); ALT (SGPT) 26 U/L (16-63); AST (SGOT) 16 U/L (15-37); LIPASE 56 U/L (73-393); TOTAL BILIRUBIN 0.3 mg/dL (0.2-1.0); TOTAL PROTEIN 8.2 g/dL (6.4-8.2)
--- NOTE | 2020-12-25 22:04 | PHYS DOC ---
Past History Past Medical History: GERD, Hyperthyroid (AURORA MYERS APRN) Past Surgical History: Cholecystectomy, Other Additional Past Surgical Histo: CARDIAC CATH (AURORA MYERS APRN) Alcohol Use: None Drug Use: None (AURORA MYERS APRN) Adult General Chief Complaint Chief Complaint: CHEST PAIN HPI HPI Patient is a 35-year-old male presents to the emergency department concerning cardiac dysrhythmias. Patient reports a low heart rate in the forties along with a decreased O2 sat at home which he monitors with his apple watch and a O2 sat machine. Patient reports he is currently being followed closely by Dr. Major medicare specialist, has recently worn a Holter monitor but has not reviewed results with his doweling machine operator yet. Patient also reports being followed with a cardio liquor runner. Patient reports he became concerned when his heart rate became very low with the low O2 sat. Patient states he also has experienced some sternal chest pain with radiation to his left arm and jaw. Patient denies syncopal episodes, dizzy spells, diaphoretic episodes, nausea, vomiting or diarrhea. She denies other physical complaints or physical concerns. (AURORA MYERS APRN) Review of Systems Review of Systems 14 body systems of review of systems have been reviewed. See HPI for pertinent positives and negative responses, otherwise all other systems are negative, nonpertinent or noncontributory. Constitutional: Negative except as outlined in HPI above. Skin: Negative except as outlined in HPI above. Eyes: Negative except as outlined in HPI above. HENT: Negative except as outlined in HPI above. Respiratory: Negative except as outlined in HPI above. Cardiovascular: Negative except as outlined in HPI above. GI: Negative except as outlined in HPI above. : Negative except as outlined in HPI above. Musculoskeletal: Negative except as outlined in HPI above. Integument: Negative except as outlined in HPI above. Neurologic: Negative except as outlined in HPI above. Endocrine: Negative except as outlined in HPI above. Lymphatic: Negative except as outlined in HPI above. Psychiatric: Negative except as outlined in HPI above. (AURORA MYERS APRN) Current Medications Current Medications Current Medications Medications (Trade) Dose Ordered Sig/Gini Start Time Stop Time Status Last Admin Dose Admin Aspirin (Aspirin Chewable) 324 mg 1X ONCE 12/25/20 20:00 12/25/20 20:01 DC 12/25/20 20:40 324 MG (AURORA MYERS APRN) Allergies Allergies Allergies Coded Allergies Type Severity Reaction Last Updated Verified sulfamethoxazole Allergy Severe 12/25/20 Yes trimethoprim Allergy Severe 12/25/20 Yes metoprolol Allergy Unknown hypotension 12/25/20 Yes (AURORA MYERS APRN) Physical Exam Physical Exam Constitutional: Well developed, well nourished, no acute distress, non-toxic appearance. 35-year-old male in no apparent distress. HENT: Normocephalic, atraumatic. Eyes: Conjunctiva normal, no discharge. Neck: Normal range of motion, no stridor. Cardiovascular: No cyanosis appreciated, distal cap refill less than 2 seconds. Heart sounds S1-S2 to auscultation. Lungs & Thorax: Patient is in no respiratory distress, no audible adventitious lung sounds appreciated. No adventitious lung sounds appreciated per auscultation, lung sounds clear all lung alvarado. Abdomen: Nontender, no abnormalities noted. Skin: Warm, dry, no erythema, no rash. Back: No tenderness, no deformities. Extremities: No tenderness, no cyanosis, no clubbing, ROM intact, no edema. Neurologic: Alert and oriented X 3, normal motor function, normal sensory function, no focal deficits noted. Psychologic: Affect normal, judgement normal, mood normal. (AURORA MYERS APRN) Current Patient Data Vital Signs Vital Signs Date Time Temp Pulse Resp B/P (MAP) Pulse Ox O2 Delivery O2 Flow Rate FiO2 12/25/20 19:26 98.5 85 18 164/89 (114) 98 Lab Results Laboratory Tests Test 12/25/20 19:50 White Blood Count 6.4 x10^3/uL (4.0-11.0) Red Blood Count 5.76 x10^6/uL (4.30-5.70) H Hemoglobin 17.6 g/dL (13.0-17.5) H Hematocrit 52.7 % (39.0-53.0) Mean Corpuscular Volume 92 fL (79-100) Mean Corpuscular Hemoglobin 31 pg (25-35) Mean Corpuscular Hemoglobin Concent 33 g/dL (31-37) Red Cell Distribution Width 13.9 % (11.5-14.5) Platelet Count 224 x10^3/uL (140-400) Neutrophils (%) (Auto) 67 % (31-73) Lymphocytes (%) (Auto) 21 % (24-48) L Monocytes (%) (Auto) 9 % (0-9) Eosinophils (%) (Auto) 3 % (0-3) Basophils (%) (Auto) 1 % (0-3) Neutrophils # (Auto) 4.3 x10^3uL (1.8-7.7) Lymphocytes # (Auto) 1.3 x10^3/uL (1.0-4.8) Monocytes # (Auto) 0.6 x10^3/uL (0.0-1.1) Eosinophils # (Auto) 0.2 x10^3/uL (0.0-0.7) Basophils # (Auto) 0.0 x10^3/uL (0.0-0.2) D-Dimer (Margie) < 0.19 mg/L (0.00-0.50) Sodium Level 139 mmol/L (136-145) Potassium Level 4.1 mmol/L (3.5-5.1) Chloride Level 104 mmol/L (98-107) Carbon Dioxide Level 28 mmol/L (21-32) Anion Gap 7 (6-14) Blood Urea Nitrogen 13 mg/dL (8-26) Creatinine 1.1 mg/dL (0.7-1.3) Estimated GFR (Cockcroft-Gault) 75.3 BUN/Creatinine Ratio 12 (6-20) Glucose Level 89 mg/dL (70-99) Calcium Level 9.1 mg/dL (8.5-10.1) Total Bilirubin 0.3 mg/dL (0.2-1.0) Aspartate Amino Transferase (AST) 16 U/L (15-37) Alanine Aminotransferase (ALT) 26 U/L (16-63) Alkaline Phosphatase 89 U/L (46-116) Creatine Kinase 46 U/L (39-308) Creatine Kinase MB (Mass) < 0.5 ng/mL (0.0-3.6) Creatine Kinase MB Relative Index 1.1 % (0-4) Troponin I Quantitative < 0.017 ng/mL (0-0.055) HS-Pnv-H-Type Natriuretic Peptide 22 pg/mL (0-124) Total Protein 8.2 g/dL (6.4-8.2) Albumin 4.1 g/dL (3.4-5.0) Albumin/Globulin Ratio 1.0 (1.0-1.7) Lipase 56 U/L (73-393) L (AURORA MYERS APRN) EKG EKG EKG performed at 1923 by ED nursing staff shows a normal sinus rhythm without ectopy, heart rate 89 bpm, NH interval 0.132, QTc interval 0.415, no acute STEMI, no ACS, no acute ischemia appreciated, EKG interpreted by ED attending physician Dr. Crabtree. (AURORA MYERS APRN) Radiology/Procedures Radiology/Procedures PATIENT: SEVEN PEDRAZA ACCOUNT: [id number] : 1985 LOCATION: ER AGE: 35 SEX: M EXAM STATUS: REG ER ORD. PHYSICIAN: AURORA MYERS APRN REASON: Chest pain PROCEDURE: CHEST AP ONLY EXAM: AP View of the chest DATE: 12/25/2020 7:44 PM INDICATION: Chest pain COMPARISON: 11/16/2020 07/12/2020 FINDINGS: The heart is not enlarged. Mediastinal and hilar contours are normal. No focal parenchymal airspace opacity. No pleural effusion or pneumothorax. IMPRESSION: 1. No radiographic evidence for acute cardiopulmonary process. Electronically signed by: Logan Romo MD (12/25/2020 8:40 PM) [facility] (AURORA MYERS APRN) Heart Score C/O Chest Pain: Yes HEART Score for Chest Pain: HEART Score for Chest Pain Response (Comments) Value History Slighlty/Non-Suspicious 0 ECG Normal 0 Age < 45 0 Risk Factors No Risk Factors 0 Troponin < Normal Limit 0 Total 0 Risk Factors: Risk Factors: DM, Current or recent (<one month) smoker, HTN, HLP, family history of CAD, obesity. Risk Scores: Risk Factors: DM, Current or recent (<one month) smoker, HTN, HLP, family history of CAD, obesity. (AURORA MYERS APRN) Course & Med Decision Making Course & Med Decision Making Pertinent Labs and Imaging studies reviewed. (See chart for details) 35-year-old male, vital signs reviewed, resents emergency functioning cardiac arrhythmias, low O2 sat, and chest pain. Physical examination unremarkable, will order cardiorespiratory work-up related to patient's verbal complaints. Will give 324 baby aspirin. Patient's EKG unremarkable, cardiac enzymes unremarkable, labs unremarkable. Upon reevaluation of the patient, patient reports chest pain has resolved. Patient is concerned that he has seen PVCs and PACs on his vehicle monitor technician while waiting for results. Discussed with patient calling his doweling machine operator Dr. Major tomorrow to review Holter monitor results. Patient gave verbal understanding of and is amenable to ED discharge planning. Return to ER precautions or concerns, as well as strict follow-up with Dr. Major. The patient's HEART score equals 0 Discussed with the patient all findings and diagnostic testing as well as the need to follow-up with their primary care provider for further evaluation and treatment or return to the ED if any new or worsening symptoms. Strict return precautions were also discussed at length, the patient voiced understanding and agreement with the discharge planning. The patient was nontoxic in appearance, in no apparent distress, and hemodynamically stable at the time of disposition. (AURORA MYERS APRN) Dragon Disclaimer Dragon Disclaimer This electronic medical record was generated, in whole or in part, using a voice recognition dictation system. (AURORA MYERS APRN) Departure Departure: Impression: Primary Impression: Cardiac arrhythmia, unspecified Disposition: 01 HOME / SELF CARE / HOMELESS Condition: GOOD Referrals: JOHNNY POLO MD (PCP) Patient Instructions: Cardiac Arrhythmia Additional Instructions: You were seen today in the emergency department for concerning cardiac arrhythmias, decreased oxygen saturation, and chest pains. Your chest pains has resolved spontaneously, your cardiorespiratory work-up is unremarkable for myocardial infarction, heart attack, pneumonia or other cardio respiratory process. During the monitoring it was revealed that occasional PACs and PVCs were noted. You have a history of these and are being closely followed by your doweling machine operator Dr. Major. You had revealed that your Holter monitor study has not been specifically discussed with Dr. Major as of this time, I encourage you to contact him to discuss your results. Please return to the emergency department immediately for worsening symptoms, increased chest pain, shortness of breath, syncopal episodes, or other concerns. Thank you for visiting our Emergency Department. It was a pleasure taking care of you today in the emergency department and we appreciate you trusting us with your care. If any additional problems come up don't hesitate to return to visit us. Please follow up with your primary care provider so they can plan additional care if needed and know about the problem that you had. If symptoms worsen come back to the Emergency Department. Any concerning symptoms that start such as chest pain, shortness of air, weakness or numbness on one side of the body, running high fevers or any other concerning symptoms return to the ER. EMERGENCY DEPARTMENT GENERAL DISCHARGE INSTRUCTIONS Thank you for coming to [facility] (ED) today and trusting us with you care. We trust that you had a positivie experience in our Emergency Department. If you wish to speak to the department management, you may call the director at [phone]. YOUR FOLLOW UP INSTRUCTIONS ARE FOLLOWS: 1. Do you have a private Doctor? If you do not have a private doctor, please ask for a resource list of physicians or clinics that may be able to assist you with follow up care. 2. The Emergency Physician has interpreted your x-rays. The X-Ray specialist will also review them. If there is a change in the findings, you will be notified in 48 hours when at all possible. 3. A lab test or culture has been done, your results will be reviewed and you will be notified if you need a change in treatment. ADDITIONAL INSTRUCTIONS AND INFORMATION: 1. Your care today has been supervised by a physician who is specially trained in emergency care. Many problems require more than one evaluation for a complete diagnosis and treatment. We recommend that you schedule your follow up appointment as recommended to ensure complete treatment of you illness or injury. If you are unable to obtain follow up care and continue to have a problem, or if your condition worsens, we recommend that you return to the ED. 2. We are not able to safely determine your condition over the phone nor are we able to give sound medical advice over the phone. For these safety reasons, if you call for medical advice we will ask you to come to the ED for further evaluation. 3. If you have any questions regarding these discharge instructions please call the ED at [phone]. SAFETY INFORMATION: In the interest of safety, wellness, and injury prevention; we encourage you to wear your sealbelt, if you smoke; quite smoking, and we encourage family to use a protective helmet for bicycling and other sporting events that present an increased risk for head injury. IF YOUR SYMPTOMS WORSEN OR NEW SYMPTOMS DEVELOP, OR YOU HAVE CONCERNS ABOUT YOUR CONDITION; OR IF YOUR CONDITION WORSENS WHILE YOU ARE WAITING FOR YOUR FOLLOW UP APPOINTMENT; EITHER CONTACT YOUR PRIMARY CARE DOCTOR, THE PHYSICIAN WHOSE NAME AND NUMBER YOU WERE GIVEN, OR RETURN TO THE ED IMMEDIATELY. Attending Signature Attending Signature I have participated in the care of this patient and I have reviewed and agree with all pertinent clinical information above including history, exam, and recommendations. (LISANDRO CRABTREE MD) Problem Qualifiers Primary Impression: Cardiac arrhythmia, unspecified Arrhythmia type: unspecified cardiac arrhythmia Qualified Codes: I49.9 - Cardiac arrhythmia, unspecified AURORA MYERS APRN Dec 25, 2020 22:04 LISANDRO CRABTREE MD Dec 26, 2020 03:08
--- NOTE | 2020-12-25 22:56 | EKG ---
[address] [address] Test Date: 2020-12-25 Test Time: 19:23:17 Pat Name: SEVEN PEDRAZA Department: Room: Gender: M Cork Tipper: : 1985 Requested By: AURORA MYERS Order Number: [id number] Reading MD: Roberto Major MD Measurements Intervals [place] Rate: 89 P: 33 NV: 132 QRS: 16 QRSD: 88 T: 28 QT: 340 QTc: 415 Interpretive Statements SINUS RHYTHM Electronically Signed On 12-27-2020 8:52:54 CDT by Roberto Major MD
== END 2020-12-25 22:10 | disposition home or self-care (01) ==
LOC: ER 19:20
DX: I49.9 Cardiac arrhythmia, unspecified (principal); K21.9 Gastro-esophageal reflux disease without esophagitis; Z88.2 Allergy status to sulfonamides; Z90.49 Acquired absence of other specified parts of digestive tract
CPT/HCPCS: 36415; 71045; 80053; 82553; 83690; 83880; 84484; 85025; 85379; 93005; 99285-25

== ENCOUNTER 2021-04-22 21:11 | Emergency (ER) | payer MEDICAID ==
[~2021-04-22] VITALS: Ht 182.9 cm; Wt 160.8 kg
[2021-04-22] MEDS ORDERED: ASPIRIN CHEWABLE 81 MG TABLET. PO ONE (21:30)
[2021-04-22] MEDS ORDERED: IV RINGERS SOLUTION,LACTATED 1,000 ML IV SCH (21:30)
--- NOTE | 2021-04-22 21:40 | PHYS DOC ---
Past History Past Medical History: GERD, Hyperthyroid Past Surgical History: Cholecystectomy, Other Additional Past Surgical Histo: CARDIAC CATH Alcohol Use: None Drug Use: None General Adult HPI: HPI: ".. I having chest discomfort... I just had a stress test yesterday with Dr. Siddiqui,..and echo... said my EF was 55% and .. " Patient is a 35 year old male who presents with above hx and complaints of chest discomfort.. Patient's stress echo was completed yesterday. Patient has had recurrent episodes of chest discomfort. Patient denies any trauma. Patient denies any changes in meds. Patient denies any travel. Patient denies any specific ill contacts. Patient denies any immunosuppression. Patient has had some several weight gain past couple years. Patient reportedly prior cardiac work-ups have been negative. Patient does have some history of GERD. Review of Systems: Review of Systems: Constitutional: Denies fever or chills Eyes: Denies change in visual acuity HENT: Denies nasal congestion or sore throat Respiratory: Denies cough or shortness of breath Cardiovascular: Complains of chest discomfort GI: Denies abdominal pain, nausea, vomiting, bloody stools or diarrhea : Denies dysuria Musculoskeletal: Denies back pain or joint pain Integument: Denies rash Neurologic: Denies headache, focal weakness or sensory changes Endocrine: Denies polyuria or polydipsia Lymphatic: Denies swollen glands Psychiatric: Denies depression or anxiety Family History: Family History: Noncontributory presentation Current Medications: Current Meds: Current Medications Medications (Trade) Dose Ordered Sig/Gini Start Time Stop Time Status Last Admin Dose Admin Aspirin (Aspirin Chewable) 324 mg 1X ONCE 04/22/21 21:30 04/22/21 21:35 DC Lactated Ringer's 1,000 ml @ 1,000 mls/hr Q1H 04/22/21 21:30 04/22/21 22:29 Allergies: Allergies: Allergies Coded Allergies Type Severity Reaction Last Updated Verified sulfamethoxazole Allergy Severe 12/25/20 Yes trimethoprim Allergy Severe 12/25/20 Yes metoprolol Allergy Unknown hypotension 12/25/20 Yes Physical Exam: PE: Constitutional: Mild distress, non-toxic appearance. [] HENT: Normocephalic, atraumatic, bilateral external ears normal, oropharynx moist, no oral exudates, nose normal. [] Eyes: PERRLA, EOMI, conjunctiva normal, no discharge. [] Neck: Normal range of motion, no tenderness, supple, no stridor. [] Cardiovascular:Heart rate regular rhythm, no murmur [] Lungs & Thorax: Bilateral breath sounds to apex and basilar crackles auscultation [] Abdomen: Bowel sounds normal, soft, no tenderness, no masses, no pulsatile masses. Obese. Old surgical scars. Skin: Warm, dry, no erythema, no rash. [] Back: No tenderness, no CVA tenderness. [] Extremities: No tenderness, no cyanosis, no clubbing, ROM intact, no edema. No cording Neurologic: Alert and oriented X 3, normal motor function, normal sensory function, no focal deficits noted. [] Psychologic: Affect very anxious, judgement normal, mood normal. [] EKG: EKG: My interpretation EKG shows a sinus rhythm at 92 bpm. Does have some anterior contour changes anterior lateral. No findings acute STEMI or contralateral changes. Time of EKG 2 hrs. My interpretation EKG #2 shows a sinus rhythm at 82 bpm. No acute morphology. Overall morphology is similar to prior EKG. Time of this EKG is 00 26 minutes [] Radiology/Procedures: Radiology/Procedures: [][address] [place] [id number] IMAGING REPORT Signed PATIENT: SEVEN PEDRAZA ACCOUNT: [id number] : 1985 LOCATION: ER AGE: 35 SEX: M EXAM STATUS: REG ER ORD. PHYSICIAN: LISANDRO LOPEZ MD REASON: chest pain PROCEDURE: PORTABLE CHEST 1V EXAM: XR CHEST 1V 04/22/2021 9:35 PM CLINICAL INDICATION: Chest pain COMPARISON: Chest radiographs 12/25/2020 TECHNIQUE: AP upright view of the chest FINDINGS: The heart is normal in size. Lungs are well-expanded. No consolidation, pleural effusion, or pneumothorax. No acute osseous abnormality. IMPRESSION: No acute cardiopulmonary abnormality. Electronically signed by: Jessica Piña MD (04/23/2021 12:08 AM) [id number] DICTATED AND SIGNED BY: JESSICA PIÑA MD DATE: 04/23/21 0007 CC: LISANDRO LOPEZ MD; ALBARO MILTON ~MTH0 0 Heart Score: C/O Chest Pain: Yes HEART Score for Chest Pain: HEART Score for Chest Pain Response (Comments) Value History Slighlty/Non-Suspicious 0 ECG Nonspecific Repolarizatio 1 Age < 45 0 Risk Factors 1 or 2 Risk Factors 1 Troponin < Normal Limit 0 Total 2 Risk Factors: Risk Factors: DM, Current or recent (<one month) smoker, HTN, HLP, family history of CAD, obesity. Risk Scores: Score 0 - 3: 2.5% MACE over next 6 weeks - Discharge Home Score 4 - 6: 20.3% MACE over next 6 weeks - Admit for Clinical Observation Score 7 - 10: 72.7% MACE over next 6 weeks - Early Invasive Strategies Course & Med Decision Making: Course & Med Decision Making Pertinent Labs and Imaging studies reviewed. (See chart for details) Patient to follow-up with cardiology. Patient follow-up primary care Dr. Milton. Patient return if any concerns. Patient take meds as previous directed. Patient consider follow-up with GI for EGD to evaluate other causes of chest discomfort. Impression: 1. Dysrhythmia 2. Chest discomfort 3. History of GERD 4. Morbid obesity 5. History of anxiety [] Dragon Disclaimer: Dragon Disclaimer: This electronic medical record was generated, in whole or in part, using a voice recognition dictation system. Departure Departure: Referrals: ALBARO MILTON (PCP) Cony Disclaimer This chart was dictated in whole or in part using Voice Recognition software in a busy, high-work load, and often noisy Emergency Department environment. It may contain unintended and wholly unrecognized errors or omissions. LISANDRO LOPEZ MD Apr 22, 2021 21:39
[2021-04-22 22:07] LABS: BGAS PH 7.44 (7.35-7.46)
[2021-04-22] MEDS ORDERED: FAMOTIDINE 20 MG/2 ML VIAL IVP ONE (22:30)
[2021-04-22] MEDS ORDERED: SUCRALFATE 1 GM TABLET. PO ONE (22:30)
[2021-04-22] MEDS ORDERED: MAGNESIUM HYDROXIDE 2,400 MG/30 ML ORAL.SUSP. PO ONE (22:30)
[2021-04-22 22:33] LABS: BASO % 1 % (0-3); EOS # 0.1 x10^3/uL (0.0-0.7); EOS % 2 % (0-3); HEMATOCRIT 50.7 % (39.0-53.0); LYMPH # 1.6 x10^3/uL (1.0-4.8); LYMPH % 27 % (24-48); MEAN CORPUSCULAR HEMOGLOBIN 30 pg (25-35); MEAN CORPUSCULAR HGB CONC 34 g/dL (31-37); MEAN CORPUSCULAR VOLUME 91 fL (79-100); MONO # 0.7 x10^3/uL (0.0-1.1); MONO % 12 % (0-9); NEUT # 3.3 x10^3uL (1.8-7.7); NEUT % 58 % (31-73); PLATELET COUNT 221 x10^3/uL (140-400); RED CELL DISTRIBUTION WIDTH 13.9 % (11.5-14.5); WHITE BLOOD COUNT 5.7 x10^3/uL (4.0-11.0)
[2021-04-22 22:41] LABS: GFR 84.1; POTASSIUM 3.6 mmol/L (3.5-5.1)
[2021-04-22 22:53] LABS: DIRECT BILIRUBIN 0.2 mg/dL (0.0-0.2); MAGNESIUM 2.4 mg/dL (1.8-2.4); TOTAL BILIRUBIN 0.6 mg/dL (0.2-1.0); TOTAL PROTEIN 7.5 g/dL (6.4-8.2)
[2021-04-22 23:20] LABS: AMPHETAMINE/METHAMPHETAMINE NEG (NEG); BARBITURATES NEG (NEG); BENZODIAZEPINES NEG (NEG); CANNABINOIDS NEG (NEG); COCAINE NEG (NEG); METHADONE NEG (NEG); OPIATES NEG (NEG); PHENCYCLIDINE NEG (NEG)
[2021-04-22 23:22] LABS: BACTERIA,URINE 0 /HPF (0-FEW); BILIRUBIN,URINE NEG (NEG); CLARITY,URINE CLEAR; COLOR,URINE YELLOW; GLUCOSE,URINE NEG (NEG); NITRITE,URINE NEG (NEG); RBC,URINE 0 /HPF (0-2); SQUAMOUS EPITHELIAL CELL,UR FEW /LPF; UROBILINOGEN,URINE 0.2 mg/dL (0.2 mg/dL); WBC,URINE OCC /HPF (0-4)
[2021-04-22 23:22] LABS: INFLUENZA A PATIENT NEGATIVE (NEGATIVE); INFLUENZA B PATIENT NEGATIVE (NEGATIVE)
--- NOTE | 2021-04-23 00:11 | RAD ---
EXAM: XR CHEST 1V 04/22/2021 9:35 PM CLINICAL INDICATION: Chest pain COMPARISON: Chest radiographs 12/25/2020 TECHNIQUE: AP upright view of the chest FINDINGS: The heart is normal in size. Lungs are well-expanded. No consolidation, pleural effusion , or pneumothorax. No acute osseous abnormality. IMPRESSION: No acute cardiopulmonary abnormality. Electronically signed by: Jessica Piña MD (04/23/2021 12:08 AM) [id number]
[2021-04-23 01:10] VITALS: BP 126/74
--- NOTE | 2021-04-23 01:49 | EKG ---
[address] [address] Test Date: 2021-04-22 Test Time: 21:22:37 Pat Name: SEVEN PEDRAZA Department: Room: Gender: M Public Welfare Director: ALAN : 1985 Requested By: LISANDRO LOPEZ Order Number: [id number] Reading MD: Apolinar Schrader Measurements Intervals [place] Rate: 92 P: 38 WV: 162 QRS: 15 QRSD: 84 T: 20 QT: 338 QTc: 423 Interpretive Statements SINUS RHYTHM Electronically Signed On 04-24-2021 13:56:14 MEASUREMENT SUPERINTENDENT by Apolinar Schrader
--- NOTE | 2021-04-23 01:54 | EKG ---
[address] [address] Test Date: 2021-04-23 Test Time: 00:26:29 Pat Name: SEVEN PEDRAZA Department: Room: Gender: M Machine Operator Picker: ALAN : 1985 Requested By: LISANDRO LOPEZ Order Number: [id number] Reading MD: Apolinar Schrader Measurements Intervals [place] Rate: 82 P: 31 FL: 162 QRS: 10 QRSD: 94 T: 17 QT: 354 QTc: 416 Interpretive Statements SINUS RHYTHM NORMAL ECG RI6.01 Compared to ECG 04/22/2021 21:22:37 No significant changes Electronically Signed On 04-24-2021 13:55:16 BATTERY INSTALLER by Apolinar Schrader
== END 2021-04-23 01:18 | disposition home or self-care (01) ==
LOC: ER 21:11
DX: R07.89 Other chest pain (principal); I49.9 Cardiac arrhythmia, unspecified; E66.01 Morbid (severe) obesity due to excess calories; K21.9 Gastro-esophageal reflux disease without esophagitis; F41.9 Anxiety disorder, unspecified; E05.90 Thyrotoxicosis, unspecified without thyrotoxic crisis or storm; Z20.822 Contact with and (suspected) exposure to COVID-19; Z68.42 Body mass index [BMI] 45.0-49.9, adult; Z88.2 Allergy status to sulfonamides; Z88.1 Allergy status to other antibiotic agents; Z88.8 Allergy status to other drugs, medicaments and biological substances
CPT/HCPCS: 36415; 36600; 71045; 80048; 80076; 80307; 81001; 82550; 82803; 83690; 83735; 83880; 84443; 84484; 85025; 85379; 85610; 85730; 87428; 93005; 96360; 99285; J7120

== ENCOUNTER → 2021-07-01 | Outpatient (CLI) | payer MEDICAID ==
--- NOTE | 2021-07-01 14:39 | RAD ---
Exam Date: 07/01/2021 9:14 AM US ABDOMEN COMPLETE Indication: Reason: ABD PAIN / Spl. Instructions: / History: . TECHNIQUE: Multiple longitudinal and transverse sonographic images of the abdomen are submitted for interpretation. FINDINGS: The liver is normal in size but diffusely increased in echogenicity and heterogeneous in echotexture. The portal vein is patent with hepatopetal flow. No focal intrahepatic abnormality is seen. Status post cholecystectomy. Common bile duct is not visualized due to overlying bowel gas. The spleen is normal in size and echogenicity. The visualized abdominal aorta, inferior vena cava an d pancreas are within normal limits. There is no upper abdominal ascites. The kidneys are normal in appearance, with the right kidney measuring 11.1 cm and the left kidney measuring 13.6 cm. IMPRESSION: Diffusely increased hepatic echogenicity and heterogeneous echotexture, consistent with underlying fa tty infiltration and/or hepatocellular disease. This limits sonographic sensitivity. Status post cholecystectomy. Common bile duct is not visualized due to overlying bowel gas. Electronically signed by: Aiden Hale MD (07/01/2021 2:37 PM) [id number]
== END ==
LOC: US 08:59
PROVIDERS: ATTEND Nurse Practitioner Family
DX: K76.89 Other specified diseases of liver (principal); Z90.49 Acquired absence of other specified parts of digestive tract
CPT/HCPCS: 76700